=== PATIENT | male | born 1975 | race Caucasian/White ===

== ENCOUNTER 2020-05-21 11:40 | Day surgery (SDC) | payer OTHER ==
[~2020-05-21 11:40] MED LIST: AMOX1TAB5 PO; AVAPRO75 MG; CARVEDILOL12.5 MG; INTESTINEX680 MG PO; OMEPRAZOLE20 MG PO
== END 2020-05-21 16:45 | disposition home or self-care (01) ==
LOC: AMB-ENDOS 11:40 → ADM 13:15 → AMB-ENDOS 16:45
PROVIDERS: ATTEND Colon & Rectal Surgery
DX: D13.1 Benign neoplasm of stomach (principal); K44.9 Diaphragmatic hernia without obstruction or gangrene; K62.89 Other specified diseases of anus and rectum; K64.1 Second degree hemorrhoids